=== PATIENT | male | born 1980 | race Caucasian/White ===

== ENCOUNTER 2020-03-09 11:06 | Emergency (ER) | payer MEDICAID ==
--- NOTE | 2020-03-09 11:55 | EDM.PDOC ---
ED HPI GENERAL MEDICAL PROBLEM - General Chief Complaint: Headache Stated Complaint: HEADACHE Time Seen by Provider: 03/09/20 11:45 Source of Information: Reports: Patient History Limitations: Reports: No Limitations - History of Present Illness INITIAL COMMENTS - FREE TEXT/NARRATIVE: 39-year-old male presents to the ED for evaluation of a bad headache. He states he has had worse headaches but not for a long time. This headache came on suddenly about 0800 hrs. this morning and is remained very intense rating it as 8-9 out of 10 since that time. He is concerned as he is on Eliquis for a DVT in his right leg that occurred in mid November of this year. He denies any falls or injuries to his head. He is also feeling dizzy and lightheaded intermittently but this history suggest that he has some mild benign positional vertigo off and on for the last several weeks. He had lab work done at the clinic yesterday through Dr. Bonilla and I was able to bring these values up on his phone. The only thing that was off of it was that he was a bit hemoconcentrated due to volume depletion. He is quite anxious. Blood pressure initially is elevated at 149 107. Patient has no other neurological symptoms. He denies any photophobia. His head feels like it is in a vice. He has not taken any medication for pain relief. Onset: Today, Sudden Onset Date: 03/09/20 Onset Time: 08:00 Duration: Hour(s):, Constant Location: Reports: Head (Generalized headache) Quality: Reports: Ache ( as if his head is in a vice.), Throbbing, Other Severity: Moderate (Pressure data 10) Improves with: Reports: Rest Worsens with: Reports: Other (Down rest seems to help. Headache is worse with standing) Context: Denies: Activity, Exercise, Lifting, Sick Contact, Trauma Associated Symptoms: Reports: Headaches, Loss of Appetite, Malaise. Denies: No Other Symptoms, Confusion, Chest Pain, Cough, cough w sputum, Diaphoresis, Fever/Chills, Nausea/Vomiting, Rash, Seizure, Shortness of Breath, Syncope, Weakness Treatments LEAD DENTAL ASSISTANT: Reports: Other (see below) (1.) Head Pain Score (Numeric/FACES): 5 - Related Data Allergies Allergy/AdvReac Type Severity Reaction Status Date / Time No Known Allergies Allergy Verified 03/09/20 12:08 Home Meds: Home Meds Omeprazole 20 mg PO DAILY 03/09/20 [History] Rivaroxaban [Xarelto] 10 mg PO DAILY 03/09/20 [History] Past Medical History Gastrointestinal History: Reports: GERD (Definitive history of peptic ulcer disease but frequent heartburn well controlled with omeprazole) Hematologic History: Reports: Other (See Below) (Deep venous thrombosis right calf in mid November after a prolonged drive from [place] to [place]. Do suspect that he developed a pulmonary embolism as well as he had significant shortness of breath and dizziness at that time as well. Is therefore been recommended that he stay on his Xarelto or Eliquis for a full 6 months of treatment.) Social & Family History - Living Situation & Occupation Living situation: Reports: Single Occupation: Unemployed ED ROS GENERAL - Review of Systems Review Of Systems: See Below Constitutional: Reports: Malaise, Weakness, Fatigue, Decreased Appetite. Denies: Fever, Chills, Weight Loss HEENT: Reports: Vertigo (He reports frequent episodes of feeling dizzy or off kilter which I interpret as vertigo. This is been going on off and on for the last few weeks.). Denies: Glasses Respiratory: Reports: No Symptoms. Denies: Shortness of Breath, Wheezing, Pleuritic Chest Pain, Cough Cardiovascular: Denies: Chest Pain, Blood Pressure Problem, Claudication, Dyspnea on Exertion, Edema, Lightheadedness, Orthopnea Endocrine: Reports: Fatigue, Polyuria ( polyuria. Blood sugar done yesterday however was 84 with no indication that he is diabetic.) GI/Abdominal: Reports: Decreased Appetite. Denies: Constipation, Diarrhea, Nausea, Vomiting : Reports: No Symptoms Musculoskeletal: Reports: Back Pain Skin: Reports: No Symptoms (Vaginal problems with low back pain.) Neurological: Reports: Dizziness. Denies: Confusion, Headache, Numbness, Paresthesia, Pre-Existing Deficit, Seizure, Syncope (Interpreted as mild vertigo symptoms.), Tingling Psychiatric: Reports: Anxiety Hematologic/Lymphatic: Reports: No Symptoms Immunologic: Reports: No Symptoms - Physical Exam Exam: See Below Exam Limited By: No Limitations General Appearance: Alert, WD/WN, Anxious, Other (Temperature is 36.6 with a heart rate of 68. Respiratory rate was 20 with O2 sats of 98% room air initial BP was 149 107 but it did come down to 121/84.) Eye Exam: Bilateral Eye: Normal Fundi, Normal Inspection, PERRL Ears: Normal TMs, Other (No MICHAEL. No cerumen impaction near the eardrum.) Throat/Mouth: Normal Inspection, Normal Lips, Normal Teeth, Normal Oropharynx Head Exam: Atraumatic, Normocephalic Neck: Normal Inspection, Supple, Non-Tender, Full Range of Motion. No: Lymphadenopathy (L), Lymphadenopathy (R) Respiratory/Chest: No Respiratory Distress, Lungs Clear, Normal Breath Sounds, No Accessory Muscle Use, Chest Non-Tender Cardiovascular: Normal Peripheral Pulses, Regular Rate, Rhythm, No Edema, No Gallop, No Murmur, No Rub GI/Abdominal: Normal Bowel Sounds, Soft, Non-Tender, No Organomegaly, No Abnormal Bruit, No Mass, Pelvis Stable, Other (No surgical scars.). No: Guarding, Rigid, Rebound Neuro Exam (Abbreviated): Alert, Oriented, CN II-XII Intact, Normal Cognition, Normal Gait, No Motor/Sensory Deficits, Other (Normal [id number] assessment. Normal rapid alternating movements. No pronator drift.) Back Exam: Normal Inspection, Full Range of Motion. No: CVA Tenderness (L), CVA Tenderness (R) Extremities: Normal Inspection, Normal Range of Motion, Non-Tender, No Pedal Edema Psychiatric: Normal Affect, Normal Mood Skin Exam: Warm, Dry, Intact, Normal Color, No Rash Course - Vital Signs Last Recorded V/S: Last Vital Signs Temp 36.6 C 03/09/20 11:25 Pulse 68 03/09/20 11:25 Resp 20 03/09/20 11:25 BP 149/107 H 03/09/20 11:25 Pulse Ox 98 03/09/20 11:25 - Orders/Labs/Meds Orders: Active Orders 24 hr Category Date Time Status Head wo Cont [CT] Stat Exams 03/09/20 11:59 Taken Meds: Medications Discontinued Medications Generic Name Dose Route Start Last Admin Trade Name Freq PRN Reason Stop Dose Admin Ondansetron HCl 4 mg 03/09/20 11:58 03/09/20 12:07 Zofran Odt PO 03/09/20 11:59 4 mg ONETIME ONE Administration Oxycodone/Acetaminophen 2 tab 03/09/20 11:59 03/09/20 12:07 Percocet 325-5 Mg PO 03/09/20 12:00 2 tab ONETIME ONE Administration - Radiology Interpretation Free Text/Narrative:: 39-year-old male presents to the ED primarily for evaluation of a significant headache that developed rapidly about 8:00 this morning. He states it has not changed much and rates as a 8-9 out of 10. States he feels like his head is in a vice. Neurological exam is normal. There is some history to suggest that he is experiencing some mild benign positional vertigo off and on for the last few weeks which is concerning him as well. He had no pronator drift. He had no sustained nystagmus on lateral gaze. Rapid alternating movements were normal no pronator drift. Patient is on Eliquis daily for a DVT in his right leg diagnosed in November with suspected associated pulmonary embolism due to his symptom complex. He therefore would appreciate having a CT of his head done to rule rule out any other pathology. Lab work was just done all at the clinic yesterday and I was able to review this on his phone and I see no need for further best occasions. CT head will be done without contrast. He will be given Percocet tabs 5/325 mg 2 tablets with Zofran 4 mg sublingual. - Re-Assessments/Exams Free Text/Narrative Re-Assessment/Exam: 03/09/20 13:00 CT scan of the head has been completed without contrast. Essentially normal. There was no intracranial bleeding or mass-effect. No ventriculomegaly. Paranasal sinuses are normal. Ports headache is slowly going away and he looks better. He is markedly reassured about the CT scan of the brain being normal. Advised playing catch up with some fluids as his lab work done at the clinic yesterday suggested that he was hemoconcentrated. Blood pressure is currently down to 121/84. Patient will be discharged home at this time. He will follow up with Dr. Turner if any further problems occur. Departure - Departure Time of Disposition: 13:07 Disposition: Home, Self-Care 01 Condition: Fair Clinical Impression: Tension-type headache Qualifiers: Headache chronicity pattern: acute headache Intractability: not intractable Qualified Code(s): G44.209 - Tension-type headache, unspecified, not intractable - Discharge Information *PRESCRIPTION DRUG MONITORING PROGRAM REVIEWED*: Not Applicable *COPY OF PRESCRIPTION DRUG MONITORING REPORT IN PATIENT SAYDA: Not Applicable Referrals: Vicente Bonilla MD [Primary Care Provider] - Forms: ED Department Discharge Additional Instructions: Evaluation in the emergency room today in regards to development of a generalized severe headache this morning about 0800 hrs. Headache persisted all morning and this was the reason you came into the ED. Associated feeling of being off balance at times intermittently for the last couple of weeks. This suggest that you may be suffering from benign positional vertigo which is a condition where the balance mechanism in the middle ear is not functioning normally on one side. Any sudden movements of the head or neck may cause you to feel off balance or like the world is spinning or offkilter. This usually goes away on its own. CT of your head was done today and there was no abnormality detected in the brain. I would suggest continuing your Xarelto or Eliquis once daily until May 03 to complete 6 months of treatment since it is highly suspect that you have suffered a pulmonary embolism when you were diagnosed with your DVT in your right leg in November of this year. Blood work done yesterday by Dr. Bonilla revealed that you were mildly dehydrated. I would suggest drinking at least a couple of 20 ounce bottles of Gatorade today to provide rehydration. You did receive medication for headache in the ED Percocet x2 tablets with Zofran for nausea relief suggest home to sleep for a couple of hours to fully break the headache cycle. Follow-up with Dr. Bonilla if any further problems occur. Blood pressure at the time of discharge came down to normal at 121/84. Sepsis Event Note (ED) - Evaluation Sepsis Screening Result: No Definite Risk - Focused Exam Vital Signs: Vital Signs Temp Pulse Resp BP Pulse Ox 03/09/20 11:25 36.6 C 68 20 149/107 H 98 - My Orders Last 24 Hours: My Active Orders 03/09/20 11:59 Head wo Cont [CT] Stat - Assessment/Plan Last 24 Hours: My Active Orders 03/09/20 11:59 Head wo Cont [CT] Stat
[2020-03-09] MEDS ORDERED: Ondansetron 4 MG Tab.DIS PO ONE (11:58)
[2020-03-09] MEDS ORDERED: Acetaminophen/oxyCODONE 325-5 MG Tab PO ONE (11:59)
== END 2020-03-09 13:39 | disposition home or self-care (01) ==
LOC: JD.ED 11:06
DX: G44.209 Tension-type headache, unspecified, not intractable (principal); K21.9 Gastro-esophageal reflux disease without esophagitis; Z79.899 Other long term (current) drug therapy
CPT/HCPCS: 70450; 99284; A9270

== ENCOUNTER 2020-06-22 08:06 | Day surgery (SDC) | payer BC, MEDICAID ==
[~2020-06-22 08:06] MED LIST: Lactated Ringers 1,000 ML IV SCH; Lidocaine 1%/Sod Bicarbonate in NS 8.4% 1 ML Syringe IDERM PRN; Sodium Chloride 0.9% 10 ML Syringe FLUSH PRN
[2020-06-22] MEDS ORDERED: Propofol 200 MG/20 ML SDV ONE ×2 (08:24→09:49)
[2020-06-22] MEDS ORDERED: Lidocaine 1% 4 ML ONE (08:25)
[2020-06-22] MEDS ORDERED: fentaNYL 100 MCG/2 ML SDV ONE (08:25)
[2020-06-22] MEDS ORDERED: Ketamine 500 mg/10 ML MDV ONE (08:28)
[2020-06-22] MEDS ORDERED: Midazolam 1 MG/ML 2 ML SDV ONE (08:30)
[2020-06-22] MEDS ORDERED: Simethicone Drops 40 MG/0.6 ML 30 ML Bottle ONE (09:48)
[2020-06-22] MEDS ORDERED: Glycopyrrolate 0.2 MG/ML SDV ONE (09:50)
--- NOTE | 2020-06-22 10:18 | PCM.OPNOTE ---
- General Post-Op/Procedure Note Date of Surgery/Procedure: 06/22/20 Operative Procedure(s): EGD and colonoscopy Findings: 1. Gastritis 2. Duodenitis 3. Irregular Z-line 4. Possible hiatal hernia 5. Ileocecal valve polyp 6. Descending colon polyp @50cm Pre Op Diagnosis: Reflux, RUQ abdominal pain, family history of colon polyps, family history of colon cancer Post-Op Diagnosis: same Anesthesia Technique: MAC Primary Surgeon: Padmini Kenney Anesthesia Provider: Melanie Jenkins Pathology: 1. Gastric antrum biposies 2. Duodenal biopsies 3. Z-line biopsies 4. Ileocecal valve polyp 5. Descending colon polyp @50cm Fluid Replacement, Intraop: 800 Output, Urine Amount: 0 EBL in mLs: 0 Complications: none apparent Condition: Good
--- NOTE | 2020-06-22 10:22 | PCM48HPAN ---
Post Anesthesia Note - EVALUATION WITHIN 48HRS OF ANESTHETIC Vital Signs in Normal Range: Yes Patient Participated in Evaluation: Yes Respiratory Function Stable: Yes Airway Patent: Yes Cardiovascular Function Stable: Yes Hydration Status Stable: Yes Pain Control Satisfactory: Yes Nausea and Vomiting Control Satisfactory: Yes Mental Status Recovered: Yes Vital Signs: Last Vital Signs Temp 36.2 C 06/22/20 10:14 Pulse 51 L 06/22/20 10:14 Resp 16 06/22/20 10:14 BP 84/48 L 06/22/20 10:14 Pulse Ox 94 L 06/22/20 10:14
--- NOTE | 2020-06-22 10:28 | PCM.PRNOTE ---
- Free Text/Narrative Note: Operative Report Date of Procedure: June 22, 2020 Pre Op Diagnosis: reflux, RUQ abdominal pain, family history of colon polyps, family history of colon cancer Post-Op Diagnosis: same Operative Procedures: 1. EGD with biopsy 2. Colonoscopy to the cecum Primary Surgeon: Padmini Kenney MD Anesthesia Provider: Melanie Jenkins CRNA Anesthesia Technique: MAC IV Fluid Replacement, Intraop: 800cc crystalloid Output, Urine Amount: 0cc EBL in mLs: 0cc Findings: 1. Gastritis 2. Duodenitis 3. Irregular Z-line 4. Possible hiatal hernia 5. Ileocecal valve polyp 6. Descending colon polyp @50cm Specimens: 1. Gastric antrum biopsies 2. Duodenal biopsies 3. Z-line biopsies 4. Ileocecal valve polyp 5. Descending colon polyp @50cm Drain/Tubes: None Indication: The patient is an 39-year-old gentleman who presented to the clinic with family history of colon polyps and family history of colon cancer. The patient reported symptoms of reflux and RUQ abdominal pain. The patient was consented for a diagnostic EGD and colonoscopy. Risks of bleeding, and perforation were discussed, and the patient agreed to the risks and wished to proceed. Description of the procedure: The patient was taken back to the endoscopy suite, and placed in the left lateral decubitus position. A bite block was placed. The patient was sedated with MAC anesthesia. The Olympus video endoscope was inserted into the oropharynx and guided under direct vision into the esophagus, stomach, and duodenum. The duodenal bulb and second portion of the duodenum were remarkable for erythema and changes in the villi consistent with duodenitis. Biopsies were taken with a cold biopsy forceps. The gastric antrum was inspected and cold biopsy forceps were used to take tissue samples for H. pylori. There were erythema changes consistent with gastritis. The scope was withdrawn to the stomach and retroflexed. There was no increased fluid, food or secretions in the upper gastrointestinal tract. No erosions or ulcers were noted. The scope was withdrawn toward the esophagus. The stomach anatomy was consistent with a possible hiatal hernia. The Z-line was irregular, and biopsies were taken in four quadrants with a cold biopsy forceps. The endoscope was then withdrawn. Next, anorectal examination was performed. No lesions, masses or hemorrhoids were noted externally or on palpation. The scope was placed into the rectum and advanced to cecum. Upon reaching the cecum, and the patients cecum was entered. There was minimal tortuosity of the colon. The ileocecal valve was well visualized and the appendiceal orifice identified. At this point, the scope was slowly withdrawn, paying attention to the mucosa. The patient had good bowel prep. A nodular, polypoid mass was noted on the ileocecal valve and removed with a jumbo cold biopsy forceps. An ulcerated polyp was noted in the descending colon at 50cm, and removed with a jumbo cold biopsy forceps. In the rectum, scope was retroflexed and some hemorrhoidal tissue was noted. The scope was placed back in the lumen and excess air was aspirated. The scope was removed. The patient tolerated the procedure very well. Complications: None apparent Condition: The patient was transported to PACU in stable condition. Padmini Kenney MD General Surgery
== END 2020-06-22 11:25 | disposition home or self-care (01) ==
LOC: JD.SDS 08:06
PROVIDERS: ATTEND Surgery
DX: Z12.11 Encounter for screening for malignant neoplasm of colon (principal); D12.4 Benign neoplasm of descending colon; K64.9 Unspecified hemorrhoids; K29.50 Unspecified chronic gastritis without bleeding; K29.80 Duodenitis without bleeding; K31.89 Other diseases of stomach and duodenum; K21.9 Gastro-esophageal reflux disease without esophagitis; Z83.71 Family history of colonic polyps; Z79.02 Long term (current) use of antithrombotics/antiplatelets; Z80.0 Family history of malignant neoplasm of digestive organs
CPT/HCPCS: 00813; 36415; 85610; A9270-GY; J2001; J2250; J2704; J3010; J3490; J7120

== ENCOUNTER 2020-10-12 12:04 | Day surgery (SDC) | payer BC, MEDICAID ==
[~2020-10-12 12:04] MED LIST changes: +Acetaminophen 325 MG Tab PO SCH; +Gabapentin 300 MG Cap PO SCH; +Lidocaine 1% 4 ML ONE; +Midazolam 1 MG/ML 2 ML SDV ONE; +Ondansetron 4 MG/2 ML SDV ONE; +Pregabalin 25 MG Cap PO SCH; +Propofol 200 MG/20 ML SDV ONE; +Rocuronium 50 MG/5 ML Vial ONE; +fentaNYL 250 MCG/5 ML SDV ONE
[2020-10-12] MEDS ORDERED: Lidocaine 1% with EPINEPHrine 1:100,000 10 ML MDV ONE (12:08)
[2020-10-12] MEDS ORDERED: Bupivacaine 0.5%/EPINEPHrine 1:200,000 50 ML MDV ONE (12:08)
--- NOTE | 2020-10-12 12:23 | PCM.PREANE ---
Preanesthetic Assessment - Procedure Proposed Procedure: lap choley - Anesthesia/Transfusion/Family Hx Anesthesia History: No Prior Anesthesia Family History of Anesthesia Reaction: No Transfusion History: No Prior Transfusion(s) - Review of Systems General: No Symptoms Pulmonary: No Symptoms Cardiovascular: No Symptoms Gastrointestinal: Abdominal Pain (gallbladder) Neurological: No Symptoms Other: Reports: Anxiety (only took meds once- had a spell months ago) - Physical Assessment NPO Status Date: 10/11/20 NPO Status Time: 20:00 Vital Signs: 97.2 16 96% 54 121/80 Height: 6 ft 2 in Weight: 103 kg ASA Class: 2 Mental Status: Alert & Oriented x3 Airway Class: Mallampati = 1 Dentition: Reports: Normal Dentition Thyro-Mental Finger Breadths: 3 Mouth Opening Finger Breadths: 3 ROM/Head Extension: Full Lungs: Clear to Auscultation, Normal Respiratory Effort Cardiovascular: Regular Rate, Regular Rhythm - Allergies Allergies/Adverse Reactions: Allergies Allergy/AdvReac Type Severity Reaction Status Date / Time No Known Allergies Allergy Verified 06/21/20 12:58 - Blood Blood Available: No - Acknowledgements Anesthesia Type Planned: General Anesthesia Pt an Appropriate Candidate for the Planned Anesthesia: Yes Alternatives and Risks of Anesthesia Discussed w Pt/Guardian: Yes Pt/Guardian Understands and Agrees with Anesthesia Plan: Yes PreAnesthesia Questionnaire HEENT History: Reports: None Cardiovascular History: Reports: Blood Clots/VTE/DVT, High Cholesterol Other Cardiovascular History: HEART CATHETERIZATION- no issues- cleared per cardiology Respiratory History: Reports: PE, Other (See Below) Other Respiratory History: UNDIAGNOSED SLEEP APNEA Gastrointestinal History: Reports: GERD Genitourinary History: Reports: None ENGINEERING PROFESSOR History: Reports: None Musculoskeletal History: Reports: None Neurological History: Reports: None Psychiatric History: Reports: None Endocrine/Metabolic History: Reports: None Hematologic History: Reports: Other (See Below) Immunologic History: Reports: None Oncologic (Cancer) History: Reports: None Dermatologic History: Reports: None - Infectious Disease History Infectious Disease History: Reports: None - Past Surgical History Head Surgeries/Procedures: Reports: None HEENT Surgical History: Reports: None Cardiovascular Surgical History: Reports: Other (See Below) (heart cath) Respiratory Surgical History: Reports: None GI Surgical History: Reports: None Female Surgical History: Reports: None Male Surgical History: Reports: None Endocrine Surgical History: Reports: None Neurological Surgical History: Reports: None Musculoskeletal Surgical History: Reports: None Oncologic Surgical History: Reports: None Dermatological Surgical History: Reports: None - SUBSTANCE USE Tobacco Use Status *Q: Never Tobacco User Tobacco Use Within Last Twelve Months: No Second Hand Smoke Exposure: No Days Per Week of Alcohol Use: 0 Recreational Drug Use History: No - HOME MEDS Home Medications: Home Meds LORazepam [Ativan] 0.5 mg PO QID PRN 06/21/20 [History] Pantoprazole Sodium [Protonix] 40 mg PO DAILY 06/21/20 [History] Rosuvastatin [Crestor] 10 mg PO DAILY 06/21/20 [History] Warfarin [Coumadin] 5 mg PO MOFR 06/21/20 [History] Warfarin [Coumadin] 7.5 mg PO SUTUWETHSA 06/21/20 [History] - CURRENT (IN HOUSE) MEDS Current Meds: Current Medications Acetaminophen (Acetaminophen 325 Mg Tab) 975 mg PO ONETIME BJ Gabapentin (Gabapentin 300 Mg Cap) 300 mg PO ONETIME BJ Lactated Ringer's (Ringers, Lactated) 1,000 mls @ 125 mls/hr IV ASDIRECTED BJ Stop: 10/12/20 23:00 Lidocaine/Sodium Bicarbonate (Lidocaine 1%/Sod Bicarbonate In Ns 8.4% 1 Ml Syringe) 0.25 ml IDERM ONETIME PRN PRN Reason: Prior to IV Start Stop: 10/12/20 18:00 Sodium Chloride (Sodium Chloride 0.9% 10 Ml Syringe) 10 ml FLUSH ASDIRECTED PRN PRN Reason: Keep Vein Open Stop: 10/12/20 18:00 Discontinued Medications Bupivacaine HCl/Epinephrine Bitart (Bupivacaine 0.5%/Epinephrine 1:200,000 50 Ml Mdv) Confirm Administered Dose 50 ml .ROUTE .STK-MED ONE Stop: 10/12/20 12:09 Fentanyl (Fentanyl 250 Mcg/5 Ml Sdv) Confirm Administered Dose 250 mcg .ROUTE .STK-MED ONE Stop: 10/12/20 11:33 Lidocaine HCl (Xylocaine-Mpf 1%) Confirm Administered Dose 4 mls @ as directed .ROUTE .STK-MED ONE Stop: 10/12/20 11:33 Lidocaine/Epinephrine (Lidocaine 1% With Epinephrine 1:100,000 10 Ml Mdv) Confirm Administered Dose 30 ml .ROUTE .STK-MED ONE Stop: 10/12/20 12:09 Midazolam HCl (Midazolam 1 Mg/Ml 2 Ml Sdv) Confirm Administered Dose 2 mg .ROUTE .STK-MED ONE Stop: 10/12/20 11:33 Ondansetron HCl (Ondansetron 4 Mg/2 Ml Sdv) Confirm Administered Dose 4 mg .ROUTE .STK-MED ONE Stop: 10/12/20 11:33 Pregabalin (Pregabalin 25 Mg Cap) 50 mg PO ONETIME BJ Propofol (Propofol 200 Mg/20 Ml Sdv) Confirm Administered Dose 200 mg .ROUTE .STK-MED ONE Stop: 10/12/20 11:33 Rocuronium Reynolds (Rocuronium 50 Mg/5 Ml Vial) Confirm Administered Dose 50 mg .ROUTE .STAvincel Consulting-MED ONE Stop: 10/12/20 11:33
[2020-10-12] MEDS ORDERED: ceFAZolin 1 GM Vial ONE (12:32)
[2020-10-12] MEDS ORDERED: Dexamethasone 4 MG/ML 5 ML MDV ONE (13:21)
[2020-10-12] MEDS ORDERED: HYDROmorphone 0.5 MG/0.5 ML Syringe IVPUSH PRN (13:28)
[2020-10-12] MEDS ORDERED: fentaNYL 100 MCG/2 ML SDV IVPUSH PRN (13:28)
[2020-10-12] MEDS ORDERED: Ondansetron 4 MG/2 ML SDV IVPUSH PRN (13:28)
[2020-10-12] MEDS ORDERED: Ketamine 500 mg/10 ML MDV ONE (13:31)
[2020-10-12] MEDS ORDERED: Lactated Ringers 1,000 ML ONE (13:38)
[2020-10-12] MEDS ORDERED: HYDROmorphone 0.5 MG/0.5 ML Syringe ONE (13:53)
[2020-10-12] MEDS ORDERED: fentaNYL 100 MCG/2 ML SDV ONE (14:07)
--- NOTE | 2020-10-12 14:31 | PCM.OPNOTE ---
- General Post-Op/Procedure Note Date of Surgery/Procedure: 10/12/20 Operative Procedure(s): laparoscopic cholecystectomy Findings: normal anatomy Pre Op Diagnosis: biliary dyskinesia Post-Op Diagnosis: same Anesthesia Technique: General ET Tube Primary Surgeon: Padmini Kenney Anesthesia Provider: Gautam Oliver Pathology: gallbladder with contents Fluid Replacement, Intraop: 1,500 Output, Urine Amount: 0 EBL in mLs: 10 Complications: none apparent Condition: Good
--- NOTE | 2020-10-12 14:35 | PCM.POSTAN ---
POST ANESTHESIA ASSESSMENT - MENTAL STATUS Mental Status: Alert, Oriented - VITAL SIGNS Vital Signs: Last Vital Signs Temp 97.2 F 10/12/20 12:00 Pulse 54 L 10/12/20 12:00 Resp 16 10/12/20 12:00 BP 121/80 10/12/20 12:00 Pulse Ox 96 10/12/20 12:00 1429 152/77 99% 81 24 97.5 - RESPIRATORY Respiratory Status: Respiratory Rate WNL, Airway Patent, O2 Saturation Stable - CARDIOVASCULAR CV Status: Pulse Rate WNL, Blood Pressure Stable - GASTROINTESTINAL GI Status: No Symptoms - PAIN Pain Score: 4 - POST OP HYDRATION Hydration Status: Adequate & Stable
--- NOTE | 2020-10-12 14:39 | PCM.PRNOTE ---
- Free Text/Narrative Note: OPERATIVE REPORT Date of Surgery/Procedure: October 12, 2020 Operative Procedure(s): laparoscopic cholecystectomy Findings: normal anatomy Pre Op Diagnosis: Biliary dyskinesia Post-Op Diagnosis: Same Anesthesia Technique: General ET Tube Primary Surgeon: Padmini Kenney MD Anesthesia Provider: Gautam Oliver CRNA Pathology: Gallbladder with contents Fluid Replacement, Intraop: 1500cc Output, Urine Amount: 0cc EBL: 10cc Drain/Tube Comments: None Indication for the procedure: The patient is a 39-year-old gentleman who presented to my office with symptoms of severe biliary colic with intermittent obstruction symptoms. He had a work-up with HIDA scan which revealed biliary dyskinesia. The patient was counseled for laparoscopic cholecystectomy, with possible conversion to open. After discussion of the risks of infection, bleeding and injury to the bile duct as well as increased complication from previous intra-abdominal surgery, the patient's consent was obtained. Description of the procedure: The patient presented to the outpatient holding area on the day of the procedure. The history and physical were verified and consent was present and on the chart. The patient was taken back to the operating room and placed in supine position on the operating table. SCD boots were placed and functional prior to the start of the procedure. Preoperative antibiotics were administered according to SCIP protocol, Ancef 2 g IV. A surgical timeout was performed. The patient then had induction of general anesthesia and was intubated without difficulty. The patient was prepped and draped in standard surgical fashion. We began by making an infraumbilical vertical incision and deepened this down through subcutaneous fat to the level of the fascia. This was grasped and incised. We bluntly entered through the peritoneum and a finger sweep was done. A stay suture of 0 Vicryl was placed in the fascia. The 12 mm balloon Martinez port was then inserted into the abdomen and the balloon inflated. Insufflation was attached and we had appropriate opening pressures. The abdomen was then insufflated to 15 mmHg. We inserted a scope into the abdomen A TAP block was then performed using 1% lidocaine with epinephrine mixed with 0.5% bupivacaine with epinephrine. We then proceeded with placing our additional ports. A 5mm port was placed in the epigastric region. Two additional 5mm ports placed under direct visualization in the right upper quadrant. The patient was then positioned with head up and right side up to facilitate exposure of the gallbladder. Once we had sufficiently exposed the dome of the gallbladder, it was grasped and retracted cephalad. We proceeded with our dissection to expose the cystic duct and cystic artery. We did have a critical view. The cystic duct and artery were then clipped and cut using endoscopic scissors. We then proceeded to fully dissect the gallbladder off of the cystic plate using the Bovie device. The gallbladder was then placed in the Endo Catch bag and withdrawn towards the umbilical port. We then inspected the area of the dissection. The Bovie was used for hemostasis. There was no significant bleeding and hemostasis was achieved. We then inspected the port sites and desufflated the abdomen. The ports were then removed. The gallbladder was withdrawn through the umbilical port site. We then proceeded to close the umbilical port site using an 0 Vicryl stitch. We had good closure of the fascia. A superficial 4-0 monocryl suture was used to approximate the skin. The skin was covered with Dermabond surgical glue. The patient tolerated the procedure well and was extubated without difficulty. He was transported to the PACU in stable condition. All sponge, needle counts correct. No immediate complications noted. Complications: None apparent Condition: Good Padmini Kenney MD General Surgery
--- NOTE | 2020-10-12 15:06 | PCM48HPAN ---
Post Anesthesia Note - EVALUATION WITHIN 48HRS OF ANESTHETIC Vital Signs in Normal Range: Yes Patient Participated in Evaluation: Yes Respiratory Function Stable: Yes Airway Patent: Yes Cardiovascular Function Stable: Yes (feels a little dizzy but says he is doing well) Hydration Status Stable: Yes Pain Control Satisfactory: Yes Nausea and Vomiting Control Satisfactory: Yes Mental Status Recovered: Yes Vital Signs: Last Vital Signs Temp 97.9 F 10/12/20 14:55 Pulse 63 10/12/20 14:55 Resp 10 L 10/12/20 14:55 BP 129/69 10/12/20 14:55 Pulse Ox 95 10/12/20 14:55
[2020-10-12] MEDS ORDERED: Ibuprofen 400 MG Tab PO PRN (15:27)
[2020-10-12] MEDS ORDERED: Acetaminophen/oxyCODONE 325-5 MG Tab PO PRN (15:27)
== END 2020-10-12 17:52 | disposition home or self-care (01) ==
LOC: JD.SDS 12:04 → JD.MS 15:39 → JD.SDS 17:52
PROVIDERS: ATTEND Surgery
DX: K82.8 Other specified diseases of gallbladder (principal); K21.9 Gastro-esophageal reflux disease without esophagitis; Z98.890 Other specified postprocedural states; Z79.899 Other long term (current) drug therapy
CPT/HCPCS: 00790; 36415; 85610; A9270-GY; J0690; J1100; J1170; J2250; J2405; J2704; J2710; J3010; J3490; J7120

== ENCOUNTER 2020-10-13 14:26 | Emergency (ER) | payer BC, MEDICAID ==
[2020-10-13] MEDS ORDERED: Dicyclomine 10 MG Cap PO ONE (15:16)
--- NOTE | 2020-10-13 15:28 | EDM.PDOC ---
ED HPI GENERAL MEDICAL PROBLEM - General Chief Complaint: Abdominal Pain Stated Complaint: GALLBLADDER SURGERY YESTERDAY PAIN TODAY Time Seen by Provider: 10/13/20 14:33 Source of Information: Reports: Patient History Limitations: Reports: No Limitations - History of Present Illness INITIAL COMMENTS - FREE TEXT/NARRATIVE: 39-year-old male presents to the ED for evaluation of acute onset of epigastric abdominal pain that radiate up into his retrosternal chest after taking ibuprofen 400 mg tablet this afternoon. Patient underwent laparoscopic cholecystectomy yesterday morning at [facility] by Dr. Whitlock. He states he has the usual periumbilical pain then radiates slightly to the right side and he was doing okay until he took the ibuprofen tablet. The ibuprofen tablet precipitated pain which precipitated palpitations and then his feeling of near syncope with some nausea. He had eaten a bit of food prior to coming to the ED but it did not seem to help. 2 hours later upon arrival in the ED pain for the most part has dissipated. He has no significant right upper quadrant abdominal pain or pain rating up into his right shoulder or back. He does not feel nausea malika. He is not sure if he is starting to pass flatus or not yet. Certainly no bowel movement for 2 days. Onset: Today, Sudden Onset Date: 10/13/20 Onset Time: 12:30 Duration: Hour(s):, Improving Location: Reports: Abdomen (Epigastric pain rating up into the retrosternal c hest.) Quality: Reports: Ache, Sharp, Stabbing Severity: Severe (Pain was severe but is now down to a very mild pain.) Improves with: Reports: Other (Improved over time.) Worsens with: Reports: None, Other Context: Denies: Activity, Exercise (Did not improve with eating. Had a small bit of oatmeal.), Lifting, Sick Contact, Other Associated Symptoms: Reports: Chest Pain, Nausea/Vomiting (Nausea with no vomiting), Weakness. 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 Abdominal Pain Score (Numeric/FACES): 5 - Related Data Allergies Allergy/AdvReac Type Severity Reaction Status Date / Time No Known Allergies Allergy Verified 10/13/20 14:33 Home Meds: Home Meds LORazepam [Ativan] 0.5 mg PO QID PRN 06/21/20 [History] Pantoprazole Sodium [Protonix] 40 mg PO DAILY 06/21/20 [History] Rosuvastatin [Crestor] 10 mg PO DAILY 06/21/20 [History] Warfarin [Coumadin] 5 mg PO MOFR 06/21/20 [History] Warfarin [Coumadin] 7.5 mg PO SUTUWETHSA 06/21/20 [History] Acetaminophen/oxyCODONE [Percocet 325-5 MG] 1 each PO Q4HR PRN 14 Days #30 tab 10/12/20 [Rx] Docusate Sodium [Colace] 100 mg PO BID 20 Days #40 cap 10/12/20 [Rx] Ibuprofen 400 mg PO Q6HRBH PRN #60 tablet 10/12/20 [Rx] Dicyclomine [Bentyl] 20 mg PO Q6H PRN #5 tablet 10/13/20 [Rx] Past Medical History HEENT History: Reports: None Cardiovascular History: Reports: Blood Clots/VTE/DVT, High Cholesterol Other Cardiovascular History: HEART CATHETERIZATION- no issues- cleared per cardiology Respiratory History: Reports: PE, Other (See Below) Other Respiratory History: UNDIAGNOSED SLEEP APNEA Gastrointestinal History: Reports: GERD Genitourinary History: Reports: None 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 Musculoskeletal History: Reports: None Neurological History: Reports: None Psychiatric History: Reports: None Endocrine/Metabolic History: Reports: None Hematologic History: Reports: Other (See Below) Immunologic History: Reports: None Oncologic (Cancer) History: Reports: None Dermatologic History: Reports: None - Infectious Disease History Infectious Disease History: Reports: None - Past Surgical History Head Surgeries/Procedures: Reports: None HEENT Surgical History: Reports: None Cardiovascular Surgical History: Reports: Other (See Below) (heart cath) Respiratory Surgical History: Reports: None GI Surgical History: Reports: None Female Surgical History: Reports: None Male Surgical History: Reports: None Endocrine Surgical History: Reports: None Neurological Surgical History: Reports: None Musculoskeletal Surgical History: Reports: None Oncologic Surgical History: Reports: None Dermatological Surgical History: Reports: None Social & Family History - Tobacco Use Tobacco Use Status *Q: Never Tobacco User - Caffeine Use Caffeine Use: Reports: Coffee - Recreational Drug Use Recreational Drug Use: No - Living Situation & Occupation Living situation: Reports: Single Occupation: Unemployed ED ROS GENERAL - Review of Systems Review Of Systems: See Below Constitutional: Denies: Fever, Chills, Malaise, Fatigue, Decreased Appetite, Weight Loss HEENT: Reports: No Symptoms Respiratory: Reports: No Symptoms Cardiovascular: Reports: Chest Pain (Transient chest pain rating up from his abdomen to the retrosternal chest). Denies: Blood Pressure Problem ( after taking ibuprofen tablet about 1230 today.), Claudication, Dyspnea on Exertion, Edema, Lightheadedness, Orthopnea, Palpitations Endocrine: Reports: No Symptoms GI/Abdominal: Reports: Abdominal Pain (Postop abdominal pain. Patient underwent laparoscopic cholecystectomy yesterday morning.), Distension, Nausea (With the onset of pain precipitated by the). Denies: Anorexia, Black Stool, Bloody Stool, Constipation, Diarrhea, Decreased Appetite, Difficulty Swallowing, Flatus, Hematemesis, Hematochezia, Melena, Mucous in Stool (Feels perhaps mildly distended.) : Reports: Other (He noticed passage of pink urine this morning. It seemed to be back to normal with the last void.) Musculoskeletal: Reports: No Symptoms Skin: Reports: No Symptoms Neurological: Reports: No Symptoms Psychiatric: Reports: No Symptoms Hematologic/Lymphatic: Reports: No Symptoms Immunologic: Reports: No Symptoms ED EXAM, GI/ABD - Physical Exam Exam: See Below Exam Limited By: No Limitations General Appearance: Alert, WD/WN, No Apparent Distress, Other (Temperature is 36.3 with a heart rate of 57. Respiratory 16 with O2 sats of 97% room air BP 1 4478.) Eyes: Bilateral: Normal Appearance (No scleral icterus no blepharal pallor.) Throat/Mouth: Normal Inspection, Normal Lips, Normal Oropharynx, Other Neck: Normal Inspection (Tongue is moist.), Supple, Non-Tender, Full Range of Mo tion. No: Carotid Bruit, Lymphadenopathy (L), Lymphadenopathy (R) Respiratory/Chest: No Respiratory Distress, Lungs Clear, Normal Breath Sounds, No Accessory Muscle Use Cardiovascular: Normal Peripheral Pulses, Regular Rate, Rhythm, No Edema, No Gallop, No Murmur, No Rub GI/Abdominal Exam: Soft, No Organomegaly, No Mass, Pelvis Stable, Abnormal Bowel Sounds (Bowel sounds are hyperactive in all 4 quadrants.), Other (Tenderness around his surgical wounds as one would anticipate. They are coated with Dermabond. There is no abnormal swelling or bruising.). No: Guarding, Rigid, Rebound, Tender Extremities: Normal Inspection, Normal Range of Motion, Non-Tender, No Pedal Edema Neurological: Alert, Oriented, CN II-XII Intact, Normal Cognition, Normal Gait Psychiatric: Normal Affect, Normal Mood Skin Exam: Warm, Dry, Intact, Normal Color, No Rash Course - Vital Signs Last Recorded V/S: Last Vital Signs Temp 36.2 C 10/13/20 15:25 Pulse 71 10/13/20 15:25 Resp 20 10/13/20 15:25 BP 141/92 H 10/13/20 15:25 Pulse Ox 99 10/13/20 15:25 - Orders/Labs/Meds Meds: Medications Discontinued Medications Generic Name Dose Route Start Last Admin Trade Name Freq PRN Reason Stop Dose Admin Dicyclomine HCl 20 mg 10/13/20 15:16 10/13/20 15:24 Dicyclomine 10 Mg Cap PO 10/13/20 15:17 20 mg ONETIME ONE Administration - Radiology Interpretation Free Text/Narrative:: 39-year-old male presents to the ED with adverse effect after taking ibuprofen 400 mg tablet. He states within 20 minutes to half hour of taking the tablet around 1230 he developed severe sharp stabbing pain in the epigastrium that radiated up into his retrosternal chest. Then he developed palpitations and nausea and a feeling like he might pass out for a period of time. He phoned the clinic for advice and they advised to walk it off and that is likely mostly gas pains. He did eat a little bit of something that did not seem to help. Short time later he did eat a little bit of oatmeal as well which did not help much either. By the time he came to the hospital he is feeling better. Heart rate had settled down into the sinus bradycardia at 58/min. The abdomen shows very active bowel sounds in all 4 quadrants suggesting that he may have had a transient ileus that is resolving. He is mild distention. Surgical wounds are healing well. No rebound or guarding. Plan simply going to treat him with Bentyl 20 mg tablet and repeat in 6 hours if needed. Follow-up with tomorrow if needed. Departure - Departure Time of Disposition: 15:28 Disposition: Home, Self-Care 01 Condition: Fair Clinical Impression: Post-operative pain Adverse effects of medication Qualifiers: Encounter type: initial encounter Qualified Code(s): T50.905A - Adverse effect of unspecified drugs, medicaments and biological substances, initial encounter - Discharge Information *PRESCRIPTION DRUG MONITORING PROGRAM REVIEWED*: Not Applicable *COPY OF PRESCRIPTION DRUG MONITORING REPORT IN PATIENT SAYDA: Not Applicable Prescriptions: Dicyclomine [Bentyl] 20 mg PO Q6H PRN #5 tablet PRN Reason: Abdominal cramps/diarrhea Referrals: Padmini Kenney MD [Primary Care Provider] - Forms: ED Department Discharge Additional Instructions: Evaluation in the emergency room today in regards to upper abdominal pain epigastric abdominal pain after taking ibuprofen 400 mg tablet. It is a little unclear as to what happened but it appeared to be spasm of the stomach which ca use pain to radiate up into your lower chest which in turn created nausea and feeling of racing heart or palpitations. At the time I seen you in the emergency room the pain had pretty well dissipated and you were back to your normal postoperative pain at the umbilicus radiating to the right mid abdomen. Bowel sounds are very active in all 4 quadrants and the bowel is likely coming back to life after surgery which often causes some paralysis or delayed motility of the bowel. You were given Bentyl 20 mg in the emergency room and a tablet to take home that can be taken in 6 to 8 hours if not needed. I also wrote a prescription for a few of the same tablets I 5 that can be taken 1 every 6 hours if needed for similar type discomfort over the next couple of days. Switch to Tylenol 650 mg every 4-6 hours as needed for pain relief and no further Motrin use. It is okay of course to use the stronger pain medication Percocet if so needed. Sepsis Event Note (ED) - Evaluation Sepsis Screening Result: No Definite Risk - Focused Exam Vital Signs: Vital Signs Temp Pulse Resp BP Pulse Ox 10/13/20 15:25 36.2 C 71 20 141/92 H 99 10/13/20 14:34 36.3 C 57 L 16 144/78 H 97
== END 2020-10-13 15:45 | disposition home or self-care (01) ==
LOC: JD.ED 14:26
DX: G89.18 Other acute postprocedural pain (principal); T39.315A Adverse effect of propionic acid derivatives, initial encounter; E78.00 Pure hypercholesterolemia, unspecified; K21.9 Gastro-esophageal reflux disease without esophagitis; Z79.01 Long term (current) use of anticoagulants; Z79.899 Other long term (current) drug therapy
CPT/HCPCS: 99283; A9270